=== PATIENT | female | born 1970 | race Two or more races ===

== ENCOUNTER 2017-11-25 11:18 | Emergency (ER) | payer MEDICAID, MEDICARE ==
[2017-11-25] MEDS ORDERED: methylPREDNISolone SOD SUCC 125 MG/2 ML VL IV ONE (11:30)
[2017-11-25] MEDS ORDERED: TERBUTALINE SULFATE 1 MG/ML 1ML VIAL SC ONE (11:30)
[2017-11-25 11:53] LABS: Hematocrit 30.1 % (36.0-46.0); Hemoglobin 9.4 g/dL (12.2-16.2); Mean Corpuscular Hgb Conc. 31.2 g/dL (32.0-36.0); Mean Corpuscular Volume 86.6 fL (80.0-100.0); Platelet Count (auto) 252 10^3/uL (140-450); Red Blood Cells 3.47 10^6/uL (4.0-5.20); White Blood Cell 9.7 10^3/uL (4.4-10.8)
[2017-11-25 11:56] LABS: Band Neutrophils % (manual) 0; Basophils % (manual) 0 (0.0-2.0); Blast Cells 0; Metamyelocytes % 0; Myelocytes % 0; Promyelocytes % 0; Reactive Lymphocytes 0
[2017-11-25 12:15] LABS: Alanine Aminotransferase 32 U/L (13-56); Albumin 3.2 g/dL (3.4-5.0); Alkaline Phosphatase 122 U/L (45-117); Amylase 26 U/L (25-115); Anion Gap 8 (5-15); Aspartate Aminotransferase 32 U/L (15-37); BUN/Creatinine Ratio 23.9; Bilirubin, Total 0.7 mg/dL (0.2-1.0); Blood Urea Nitrogen 39 mg/dL (7-18); Carbon Dioxide 26 mmol/L (21-32); Chloride 104 mmol/L (98-107); GFR African American 43 mL/min; GFR Non-African American 36 mL/min; Glucose 128 mg/dL (74-106); Lipase 57 U/L (73-393); Magnesium 2.9 mg/dL (1.6-2.6); Potassium 4.9 mmol/L (3.5-5.1); Sodium 138 mmol/L (136-145)
[2017-11-25 13:22] LABS: Eosinophils % (manual) 3 (0-7); Lymphocytes % (manual) 5 (10.0-50.0); Monocytes % (manual) 8 (0-12)
[2017-11-25 14:07] VITALS: BP 149/75
[2017-11-25 15:00] LABS: Urine Bacteria MANY /hpf (None Seen); Urine Blood Negative /uL (Negative); Urine Mucus FEW (None Seen); Urine Specific Gravity 1.015 (1.001-1.035); Urine WBC 15 /hpf (0 - 5)
[2017-11-25] MEDS ORDERED: FUROSEMIDE 40 MG/4 ML VIAL IV ONE (16:00)
[2017-11-25] MEDS ORDERED: cefTRIAXone 1GM/10ml IVPUSH 10 ML IV ONE (16:00)
[2017-11-25 16:06] VITALS: BP 155/77
[2017-11-25] MEDS ORDERED: IPRATROPIUM BROM 0.5 MG/2.5ML INH SOL NEB ONE (17:45)
[2017-11-25] MEDS ORDERED: HYDROcodone-ACET 10/325MG TAB PO ONE (17:45)
[2017-11-25] MEDS ORDERED: ALBUTEROL SULF 2.5 MG/0.5ML(0.5%) NEB SOLN NEB ONE (17:45)
[2017-11-25] MEDS ORDERED: ONDANSETRON HCL 4 MG/2 ML VIAL IV ONE (20:15)
[2017-11-25 20:58] LABS: INR > 10 (0.9-1.15)
[2017-11-25] MEDS ORDERED: FUROSEMIDE 20 MG/2 ML VIAL IV ONE (21:30)
[2017-11-25 21:39] VITALS: BP 146/76
== END 2017-11-25 22:49 | disposition short-term general hospital (02) ==
LOC: ER 11:18 → EDBD 11:18 → ER 22:30
DX: J44.1 Chronic obstructive pulmonary disease with (acute) exacerbation (principal); I27.20 Pulmonary hypertension, unspecified; R06.03 Acute respiratory distress; E66.01 Morbid (severe) obesity due to excess calories; E46 Unspecified protein-calorie malnutrition; E11.21 Type 2 diabetes mellitus with diabetic nephropathy; I13.0 Hypertensive heart and chronic kidney disease with heart failure and stage 1 through stage 4 chronic kidney disease, or unspecified chronic kidney disease; I50.9 Heart failure, unspecified; E11.22 Type 2 diabetes mellitus with diabetic chronic kidney disease; D63.1 Anemia in chronic kidney disease; N39.0 Urinary tract infection, site not specified; Z94.0 Kidney transplant status; Z53.29 Procedure and treatment not carried out because of patient's decision for other reasons
CPT/HCPCS: 36415; 36600; 71045; 80053; 81001; 82150; 82805; 83690; 83735; 83880; 84484; 85007; 85027; 85379; 85610; 85730; 93005; 94640; 94660; 96372; 96374; 96375; 96376; 99291; J1940; J2405; J2930; J3105